=== PATIENT | male | born 1985 | race American Indian/Alaskan Native ===

== ENCOUNTER 2016-05-28 11:52 | Emergency (ER) | payer OTHER ==
[2016-05-28 12:18] VITALS: BP 133/85
[2016-05-28] MEDS ORDERED: DUONEB 0.5 MG-3 MG/3 ML SOLN IH ONE (13:49)
[2016-05-28] MEDS ORDERED: MOTRIN PO ONE (13:49)
[2016-05-28] MEDS ORDERED: ROBITUSSIN DM PO ONE (13:49)
--- NOTE | 2016-05-28 15:45 | Emergency Department Report ---
- General Chief Complaint: Upper Respiratory Infection Stated Complaint: BLOOD WHEN COUGHING UP MUCUS Time Seen by Provider: 05/28/16 13:47 Source: patient Mode of arrival: Ambulatory Limitations: No Limitations - History of Present Illness Initial Comments: 30-year-old male past medical history none presents with complaint of a week and a half of worsening productive cough with blood-tinged sputum. Coughing fits. Body aches. Denies sore throat earache, subjective fever chills denies nausea or vomiting. No recent travel. No audible wheezing or stridor on clinical exam the patient is actively coughing. Onset/Timin -: days(s) Severity: moderate Severity scale (0 -10): 7 Improves With: OTC cold medicine Worsens With: nothing Associated Symptoms: fever, rhinorrhea, cough, shortness of breath - Related Data Previous Rx's Medication Instructions Recorded Last Taken Type ALBUTEROL Inhaler [Proair] 1 puff IH Q4H PRN #1 inha 05/28/16 Unknown Rx Azithromycin [Zithromax Z-FANNY] 250 mg PO QDAY #6 tablet 05/28/16 Unknown Rx Naproxen [Naprosyn] 500 mg PO BID PRN #20 tablet 05/28/16 Unknown Rx Phenylephrine/Dm/Acetaminop/GG 10 ml PO Q4H PRN #1 liquid 05/28/16 Unknown Rx [Mucinex Fast-Max Sev Cold Liq] Allergies Allergy/AdvReac Type Severity Reaction Status Date / Time No Known Allergies Allergy Unverified 05/28/16 12:12 ED Review of Systems ROS: Stated complaint: BLOOD WHEN COUGHING UP MUCUS Other details as noted in HPI ED Past Medical Hx - Medications Home Medications: Home Medications Medication Instructions Recorded Confirmed Last Taken Type ALBUTEROL Inhaler [Proair] 1 puff IH Q4H PRN #1 inha 05/28/16 Unknown Rx Azithromycin [Zithromax Z-FANNY] 250 mg PO QDAY #6 tablet 05/28/16 Unknown Rx Naproxen [Naprosyn] 500 mg PO BID PRN #20 tablet 05/28/16 Unknown Rx Phenylephrine/Dm/Acetaminop/GG 10 ml PO Q4H PRN #1 liquid 05/28/16 Unknown Rx [Mucinex Fast-Max Sev Cold Liq] ED Physical Exam - General Limitations: No Limitations General appearance: alert, in no apparent distress - Head Head exam: Present: atraumatic, normocephalic - Eye Eye exam: Present: normal appearance - ENT ENT exam: Present: mucous membranes moist - Neck Neck exam: Present: normal inspection - Respiratory Respiratory exam: Present: normal lung sounds bilaterally, respiratory distress , wheezes, rhonchi - Cardiovascular Cardiovascular Exam: Present: regular rate, normal rhythm. Absent: systolic murmur, diastolic murmur, rubs, gallop - GI/Abdominal GI/Abdominal exam: Present: soft, normal bowel sounds - Rectal Rectal exam: Present: deferred - Extremities Exam Extremities exam: Present: normal inspection - Back Exam Back exam: Present: normal inspection - Neurological Exam Neurological exam: Present: alert, oriented X3 - Psychiatric Psychiatric exam: Present: normal affect, normal mood - Skin Skin exam: Present: warm, dry, intact, normal color. Absent: rash ED Course Vital Signs 05/28/16 05/28/16 12:12 14:06 Temperature 100.7 F H Pulse Rate 99 H Pulse Rate [ 76 Posterior Bilateral Throughout] Respiratory 18 Rate [Posterior Bilateral Throughout] Blood Pressure 133/85 O2 Sat by Pulse 100 Oximetry ED Medical Decision Making - Medical Decision Making A/P: Community-acquired pneumonia 1-context of patient's complaint of yellow blood tinged sputum and possible haziness in the retrocardiac space on the lateral chest x-ray was started empirically on azithromycin 2-naproxen when necessary, Mucinex for cough urine 3-follow-up with primary care doctor 4-I sent a flu swab the patient states that he had to go pick up man his children and could not wait for results. 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 Critical care attestation.: If time is entered above; I have spent that time in minutes in the direct care of this critically ill patient, excluding procedure time. ED Disposition Clinical Impression: Community acquired pneumonia Disposition: DISCHARGED TO HOME OR SELFCARE Is pt being admited?: No Does the pt Need Aspirin: No Condition: Stable Instructions: Community-acquired Pneumonia (ED) Prescriptions: Phenylephrine/Dm/Acetaminop/GG [Mucinex Fast-Max Sev Cold Liq] 10 ml PO Q4H PRN #1 liquid PRN Reason: Cough Naproxen [Naprosyn] 500 mg PO BID PRN #20 tablet PRN Reason: Fever ALBUTEROL Inhaler [Proair] 1 puff IH Q4H PRN #1 inha PRN Reason: Cough Azithromycin [Zithromax Z-FANNY] 250 mg PO QDAY #6 tablet Referrals: PRIMARY CAREMD [Primary Care Provider] - 3-5 Days YULIANA ALVA MD [Staff Physician] - 3-5 Days [facility] [Outside] - 3-5 Days Time of Disposition: 15:45
--- NOTE | 2016-05-29 10:29 | XRay Report ---
ROUTINE CHEST, TWO VIEWS: HISTORY: Blood tinged cough. The trachea, heart, mediastinal contour, lung ewing and bony thorax are unremarkable. IMPRESSION: Unremarkable chest x-ray.
== END 2016-05-28 16:05 | disposition home or self-care (01) ==
LOC: ED 11:52
DX: J18.8 Other pneumonia, unspecified organism (principal); M79.1 Myalgia
CPT/HCPCS: 71020; 87400; 94640